=== PATIENT | female | born 1955 | race Caucasian/White ===

== ENCOUNTER 2017-03-13 08:02 | Day surgery (SDC) | payer MEDICAID, MEDICARE ==
[2017-03-13] MEDS ORDERED: Sodium Chloride 0.9% 10 ML Syringe FLUSH PRN (08:15)
[2017-03-13] MEDS ORDERED: Lactated Ringers 1,000 ML IV SCH (08:15)
[2017-03-13] MEDS ORDERED: Propofol 200 MG/20 ML SDV IV ONE (11:00)
[2017-03-13] MEDS ORDERED: Midazolam 1 MG/ML 2 ML SDV IV ONE (11:00)
[2017-03-13 14:09] VITALS: BP 146/78
--- NOTE | 2017-03-14 09:41 | OR ---
DATE OF OPERATION: 03/13/2017 SURGEON: Charles Lomas MD PREOPERATIVE DIAGNOSIS: Cataract, left eye. POSTOPERATIVE DIAGNOSIS: Cataract, left eye. PROCEDURE: Phacoemulsification of cataract, left eye, with placement of an Michael model ZCB00, 19 diopter, foldable posterior chamber intraocular lens. NUCLEAR SCIENTIST: None. DESCRIPTION OF PROCEDURE: Peribulbar anesthetic was performed using a mixture of 2% lidocaine with Wydase. The patient was prepped and draped in the usual fashion. A 3 mm fornix based conjunctival flap was performed at the 10 o'clock position. Hemostasis was obtained using diathermy, and a 2.8 mm grooved near clear corneal incision was then made. A stab incision was made into the anterior chamber at the 12 o'clock position and a second stab wound incision was made underlying the grooved near clear corneal incision. Viscoat was instilled into the anterior chamber, and a continuous tear capsulotomy was performed. Hydrodissection was accomplished with balanced salt solution, and the nucleus was removed in a divide and conquer fashion. The remaining cortical material was removed with the irrigation and aspiration unit. Viscoat was instilled into the anterior chamber, and an Michael model ZCB00, 19 diopter, foldable, posterior chamber intraocular lens was placed into the capsular bag, the haptics being positioned at the 1 and 7 o'clock positions. The residual Viscoat was removed from the anterior chamber and the anterior chamber reformed with balanced salt solution. The wound was checked and noted to be watertight. The conjunctiva was secured in its original position with diathermy. Alphagan and Maxitrol Ointment were then placed into the patient's eye. The patient tolerated the procedure well and it was without complication. Elapsed phacoemulsification time was 20.9 seconds. Because of patient discomfort, 0.3 mL of a mixture of phenylephrine, lidocaine, and balanced salt solution was instilled in the anterior chamber. This resolved the patient's discomfort. /[id number] DEG/MODL Charles Lomas MD CC: Deborah Shetty RNC, ANP Eligio Prado, OD MTDD
--- NOTE | 2017-03-15 14:05 | DISCH ---
DATE OF FOLLOW-UP VISIT: 03/14/2017 Rosie Ashley was seen on 03/14/2017 in regard to her first postoperative check. On 03/13/2017, she underwent an uneventful phacoemulsification with placement of a foldable posterior chamber intraocular lens in the left eye. On the first postoperative day, visual acuity in the left eye, without correction, was 20/100. She was noted to have some scattered areas of subconjunctival hemorrhage. The cornea was clear. Anterior chamber was deep with a minimal amount of inflammation. The iris was normal, and her posterior chamber intraocular lens was in good position. She had a good red reflex. Her intraocular pressure was 24. My impression is that Rosie is doing well following her surgery. DISCHARGE INSTRUCTIONS: She was instructed to continue prednisolone acetate 1% and Vigamox in the operative eye four times a day, and given a tapering dose schedule thereof. She will be returning to see Dr. Eligio Prado in about one week for a re-check. She also was instructed to contact Dr. Prado or my office prior to that time if she would have any problems. PLAN: At her request, she has been scheduled for cataract surgery to the right eye in the near future. She has been having difficulties with both distance and near visual activities and her vision diminishes further under other situations. Also, she will have problems with her eyes working together until both of them have been done. /[id number] DEG/MODL CC: Eligio Prado OD
== END 2017-03-13 12:45 | disposition home or self-care (01) ==
LOC: FB.SDS 08:02
PROVIDERS: ATTEND Ophthalmology
DX: H26.9 Unspecified cataract (principal); E11.9 Type 2 diabetes mellitus without complications; E03.9 Hypothyroidism, unspecified; K21.9 Gastro-esophageal reflux disease without esophagitis; E78.5 Hyperlipidemia, unspecified; F33.40 Major depressive disorder, recurrent, in remission, unspecified; E66.9 Obesity, unspecified; Z79.84 Long term (current) use of oral hypoglycemic drugs; Z79.899 Other long term (current) drug therapy; Z91.040 Latex allergy status; Z88.1 Allergy status to other antibiotic agents; Z88.8 Allergy status to other drugs, medicaments and biological substances; Z87.891 Personal history of nicotine dependence; Z68.32 Body mass index [BMI] 32.0-32.9, adult
CPT/HCPCS: 66984; 82962; C1780; J2250; J2704; J7120

== ENCOUNTER 2017-04-11 09:04 | Day surgery (SDC) | payer MEDICAID ==
[~2017-04-11 09:04] MED LIST: Lactated Ringers 1,000 ML IV SCH
[2017-04-11] MEDS ORDERED: Propofol 200 MG/20 ML SDV IV ONE (10:55)
[2017-04-11 13:42] VITALS: BP 132/64
--- NOTE | 2017-04-12 11:37 | OR ---
DATE OF OPERATION: 04/11/2017 SURGEON: Charles Lomas MD PREOPERATIVE DIAGNOSIS: Cataract, right eye. POSTOPERATIVE DIAGNOSIS: Same. OPERATION PERFORMED: Phacoemulsification of cataract right eye with placement of an Michael, model ZCB00, 19.5 diopters, foldable, posterior chamber intraocular lens. DRY KILN BURNER: None. DESCRIPTION OF PROCEDURE: Peribulbar anesthetic was performed using a mixture of 2% lidocaine with Wydase. The patient was prepped and draped in the usual fashion. A 3 mm fornix based conjunctival flap was performed at the 10 o'clock position. Hemostasis was obtained using diathermy, and a 2.8 mm grooved near clear corneal incision was then made. A stab incision was made into the anterior chamber at the 12 o'clock position and a second stab wound incision was made underlying the grooved near clear corneal incision. Viscoat was instilled into the anterior chamber, and a continuous tear capsulotomy was performed. Hydrodissection was accomplished with balanced salt solution, and the nucleus was removed in a divide and conquer fashion. The remaining cortical material was removed with the irrigation and aspiration unit. Viscoat was instilled into the anterior chamber, and an Michael, model ZCB00, 19.5 diopters, foldable, posterior chamber intraocular lens was placed into the capsular bag, the haptics being positioned at the 1 and 7 o'clock positions. The residual Viscoat was removed from the anterior chamber and the anterior chamber reformed with balanced salt solution. The wound was checked and noted to be watertight. The conjunctiva was secured in its original position with diathermy. Alphagan and Maxitrol Ointment were then placed into the patient's eye. The patient tolerated the procedure well and it was without complication. Elapsed phacoemulsification time was 24.5 seconds. Postoperative instructions as related to activities as well as medications were reviewed with the patient. The patient was instructed to return to see me on the day following surgery for the first postoperative check. The patient was also instructed to contact me prior to that time if the patient was to have any problems. /[id number] DEG/MODL CC: LYNDA CAICEDO CNP [facility]
== END 2017-04-11 12:24 | disposition home or self-care (01) ==
LOC: FB.SDS 09:04
PROVIDERS: ATTEND Ophthalmology
DX: H26.9 Unspecified cataract (principal); E03.9 Hypothyroidism, unspecified; E11.36 Type 2 diabetes mellitus with diabetic cataract; K21.9 Gastro-esophageal reflux disease without esophagitis; F33.40 Major depressive disorder, recurrent, in remission, unspecified; Z79.84 Long term (current) use of oral hypoglycemic drugs; Z79.899 Other long term (current) drug therapy; Z79.82 Long term (current) use of aspirin; Z88.1 Allergy status to other antibiotic agents; Z88.8 Allergy status to other drugs, medicaments and biological substances; Z91.040 Latex allergy status; E78.5 Hyperlipidemia, unspecified; Z90.49 Acquired absence of other specified parts of digestive tract; Z98.84 Bariatric surgery status; Z98.890 Other specified postprocedural states; Z87.891 Personal history of nicotine dependence
CPT/HCPCS: 66984; 82962; C1780; J2704; J7120

== ENCOUNTER 2019-08-26 08:06 | Day surgery (SDC) | payer MEDICARE, OTHER ==
[~2019-08-26 08:06] MED LIST changes: +Sodium Chloride 0.9% 10 ML Syringe FLUSH PRN
[2019-08-26] MEDS ORDERED: Propofol 200 MG/20 ML SDV IV ONE (08:07)
[2019-08-26] MEDS ORDERED: Lactated Ringers 1,000 ML IV ONE (08:07)
[2019-08-26] MEDS ORDERED: Lidocaine 2% 5 ML SDV INJECT ONE (08:07)
--- NOTE | 2019-08-26 10:54 | PCM.OPNOTE ---
- General Post-Op/Procedure Note Date of Surgery/Procedure: 08/26/19 Operative Procedure(s): egd with biopsy. c scope with biopsy Findings: gastritis transvers colon polyp diveticulosis Pre Op Diagnosis: epigastric abd pain. colon cancer screening Post-Op Diagnosis: gastritis. transvers colon polyp. diveticulosis Anesthesia Technique: MAC Primary Surgeon: Bigg Shah Anesthesia Provider: Julio Bach Pathology: stomach transverse colon polyp Complications: None Condition: Good Free Text/Narrative:: see dictation.
--- NOTE | 2019-08-26 13:17 | OR ---
DATE OF OPERATION: 08/26/2019 SURGEON: Bigg Shah MD PROCEDURES PERFORMED: Esophagogastroduodenoscopy with cold forceps biopsy and colonoscopy with cold forceps biopsy. PREOPERATIVE DIAGNOSIS: History of epigastric abdominal discomfort, as well as being due for screening colonoscopy. POSTOPERATIVE DIAGNOSIS: Gastritis especially along the gastrojejunal anastomosis, scattered diverticulosis, and transverse colon polyp. INDICATIONS FOR PROCEDURE: This is a 64-year-old white female, who was referred with the above-mentioned complaints. She was offered and accepted an EGD as well as a colonoscopy. She is status post a gastric bypass and is due for a screening colonoscopy. DESCRIPTION OF OPERATION: After an excellent IV sedation was administered, the bite block was inserted. The flexible endoscope was passed without difficulty down the patient's esophagus into the stomach. She did have a fairly large gastric pouch. The scope was passed through the anastomosis and down the small intestine limb. The following findings were noted: The small intestine was essentially unremarkable. In the gastric pouch, especially in the area at the anastomosis, demonstrates marked erythema. Several member service representative biopsies were taken. The esophagus was unremarkable. The pouch was deflated and the scope was removed. Our attention was then turned to the colon. Digital rectal exam was performed. No marked abnormality was noted. Flexible colonoscope was inserted and advanced to the cecum. The prep was excellent. The following findings were noted: Ascending colon, unremarkable. Transverse colon, small 3 mm hyperplastic-appearing polyp, biopsied with cold biopsy forceps and sent for permanent. Scattered diverticula. Descending colon, occasional diverticula. Sigmoid, occasional diverticula. Rectum and anus, unremarkable. Colon was deflated as the scope was removed. The patient tolerated the procedure well. Results will be sent to the patient via letter. /[id number] /MODL
[2019-08-26 16:08] VITALS: BP 158/83; PULSE 88
== END 2019-08-26 12:10 | disposition home or self-care (01) ==
LOC: FB.SDS 08:06
PROVIDERS: ATTEND Surgery
DX: Z12.11 Encounter for screening for malignant neoplasm of colon (principal); D12.3 Benign neoplasm of transverse colon; K57.30 Diverticulosis of large intestine without perforation or abscess without bleeding; K25.9 Gastric ulcer, unspecified as acute or chronic, without hemorrhage or perforation; K31.89 Other diseases of stomach and duodenum; I10 Essential (primary) hypertension; K21.9 Gastro-esophageal reflux disease without esophagitis; F32.9 Major depressive disorder, single episode, unspecified; E11.40 Type 2 diabetes mellitus with diabetic neuropathy, unspecified; Z79.84 Long term (current) use of oral hypoglycemic drugs; Z87.891 Personal history of nicotine dependence; Z79.899 Other long term (current) drug therapy; Z98.84 Bariatric surgery status
CPT/HCPCS: 00813; 43239; 45380; 82962; 88305; 88342; J2001; J2704; J7120